=== PATIENT | male | born 1975 | race African-American/Black ===

== ENCOUNTER 2025-01-27 16:12 | Emergency (ER) | payer OTHER, SELFPAY ==
--- OUTSIDE RECORDS SUMMARY | 2025-01-27 16:16 | XMS_ITS | Clinical Summary ---
Author Organization [facility] Address [address] [place] [address] Care Team Providers Care Industrial Workers Name Role Phone Unavailable Primary Care Provider Unavailabl e Source Comments [facility],non-owned Affiliates and Associated Physician Practices is amultiple site organization consisting of ambulatory clinics and hospital sitesin [place], [place], [place] and [place]. This disclosure is being madepursuant to the Care Everywhere program and may not contain all information available regarding this patient. Last updated 17.[facility] Allergies No known active allergies Medications * Be aware that medications may not be up to date on this document. Alwaysverify current medications with the patient. No known medications Active Problems Problem Noted Date Diagnosed Date NSTEMI (non-ST elevated myocardial infarction) 0 03/19/2018 Acute thoracic back pain 03/19/2018 Social History Tobacco Use Types Packs/Day Years Used Date Smoking Tobacco: Every Day Cigarettes 0.3 22 Started: 03/15/1996; Last attempted to quit: 03/15/2018 Smokeless Tobacco: Never Tobacco Cessation:Counseling Given: Yes Alcohol Use Standard Drinks/Week Comments No 0 (1 standard drink = 0.6 oz pur e alcohol) PHQ-2 Answer Date Recorded PHQ2 TOTAL SCORE 0 04/28/2021 Sex and Gender Information Value Date Recorded Sex Assigned at Not on file Legal Sex Male 12:02 PM CORRECTION WARDEN Gender Identity Not on file Sexual Orientation Not on file Last Filed Vital Signs Vital Sign Reading Time Taken Comments Blood Pressure 157/102 08/23/2024 12:44 AM CDT Pulse 87 08/23/2024 12:44 AM CDT Temperature 36.7 C (98.1 F) 08/23/2024 12:44 AM CDT Respiratory Rate 20 08/23/2024 12:44 AM CDT Oxygen Saturation 94% 08/23/2024 12:44 AM CDT Inhaled Oxygen Concentration - - Weight 79.4 kg (175 lb) 08/23/2024 12:44 AM CDT Height 180.3 cm (5' 11) 08/23/2024 12:44 AM CDT Body Mass Index 24.41 08/23/2024 12:44 AM CDT Plan of Treatment Health Maintenance Due Date Last Done Comments COLOGUARD (AGES 45-75) - COL ON CA SCREENING 1976 COLON MONITORING 1976 COLONOSCOPY - COLON CA SCREENING 1976 CT COLONOGRAPHY - COLON CA SCREENING 1976 Colorectal Cancer Screening 1976 FIT - COLON CA SCREENING 1976 FLEX SIG - COLON CA SCREENING 1976 LIPID TESTING 1976 HEPATITIS C SCREENING 02/27/1994 DTAP/TDAP/TD VACCINES (1 - Tdap) 1995 HEPATITIS B VACCINE (1 of 3 - 19+ 3-dose series) 1995 PNEUMOCOCCAL VACCINE (1 of 2 - PCV) 1995 SCREENING FOR DIABETES 12/07/2021 9, 03/19/2018, 09/12/2010 DEPRESSION SCREENING 02/22/2024 10/07/2021 COVID-19 VACCINE (1 - 2024-2 6 season) 2024 INFLUENZA VACCINE (#1) 2024 ZOSTER VACCINE (1 of 2) 2026 HIV SCREENING Completed 08/23/2024 HIB VACCINE Aged Out No longer eligi ble based on patient's age to complete this topic HPV VACCINE Aged Out No longer eligi ble based on patient's age to complete this topic MENINGOCOCCAL (Group B) VACCINE SHARED DECISION-MAKING Aged Out No longer eligible based on patient's age to complete this topic MENINGOCOCCAL GROUPS A/C/Y/W VACCINE Aged Out No longer eligible b ased on patient's age to complete this topic Procedures Procedure Name Priority Date/Time Associated Diagnosis Comments HIV-1 HIV-2 ANTIBODY + HIV P24 AG PANEL STAT 08/23/2024 2:17 AM CDT BASIC METABOLIC PANEL (CALCIUM TOTAL) AM Draw 03/20/2018 5:27 AM CORRECTION WARDEN from Last 3 Months or Most Recently Relevant to Health Maintenance Results * HIV-1 HIV-2 ANTIBODY + HIV P24 AG PANEL (08/23/2024 2:17 AM CDT) HIV1/2 Ab + P24 Ag Non Reactive Non Reactive 08/23/2024 3:07 AM CDT [facility] Blood BLOOD SPECIMEN / Unknown Venipuncture / Unknown 08/23/2024 2:17 AM CDT 08/23/2024 2:24 AM CDT Narrative [facility] - 08/23/2024 3:07 AM CDT No Laboratory evidence of HIV infection. us Dre Anderson MD LAB - CHEMISTRY ORDERA BLES Final Result [facility] [address] [place], [place] [id number] * (ABNORMAL) BASIC METABOLIC PANEL (CALCIUM TOTAL) (03/20/2018 5:27 AM CORRECTION WARDEN) Glucose 129(H) 74 - 106 mg/dL 03/20/2018 6:23 AM [facility] Sodium 137 136 - 145 mmol/L 03/20/2018 6:23 AM [facility] Potassium 4.0 3.5 - 5.1 mmol/L 03/20/2018 6:23 AM [facility] Chloride 103 98 - 107 mmol/L 03/20/2018 6:23 AM [facility] CO2 23 22 - 31 mmol/L 03/20/2018 6:23 AM [facility] Calcium 9.1 8.5 - 10.1 mg/dL 03/20/2018 6:23 AM [facility] Anion Gap 11 8 - 16 mmol/L 03/20/2018 6:23 AM [facility] BUN 23(H) 7 - 21 mg/dL 03/20/2018 6:23 AM CORRECTION WARDEN [facility] Creatinine 1.10 0.50 - 1.30 mg/dL 03/20/2018 6:23 AM [facility] eGFR by MDRD >60 >60 mL/min/1.7 3m2 03/20/2018 6:23 AM CORRECTION WARDEN [facility] eGFR by MDRD >60 >60 mL/min/1.7 3m2 03/20/2018 6:23 AM CORRECTION WARDEN [facility] Blood BLOOD SPECIMEN / Unknown Lab Venipuncture / Unknown 03/20/2018 5:27 AM CORRECTION WARDEN 03/20/2018 5:35 AM CORRECTION WARDEN Mayra Jane FUEL OIL CLERK-SALES COMPENSATION ANALYST LAB - CHEMISTRY ORDERA BLES Final Result [facility] [address] [place] [address] from Last 3 Months or Most Recently Relevant to Health Maintenance Insurance SELF PAY NO INSURANCE Member Subscriber Plan / Payer (Ef fective for All Dates) Name:Jesse Fountain Jr. Relation to Subscriber:Self Name:Jesse Fountain Jr. Payer ID:Not on file Group ID:Not on file Type:Self Pay Address: [facility] Advance Directives * Full Code (Latest Code Status on File) Date Activated Date Inactivated Comments 03/19/2018 8:59 PM 03/20/2018 6:11 PM * Full Code Date Activated Date Inactivated Comments 03/19/2018 7:29 PM 03/19/2018 8:59 PM
--- OUTSIDE RECORDS SUMMARY | 2025-01-27 16:16 | XMS_ITS | Continuity of Care Document ---
Author Name Trent Shah Address [address] [place], [place] [id number] [place] [address] Organization Unknown Address [address] [place] [address] Medications No known medications Problems No known problems
--- OUTSIDE RECORDS SUMMARY | 2025-01-27 16:16 | XMS_ITS | Continuity of Care Document ---
Author Name Pablo Trent Address [address] [place], [place] [id number] [place] [address] Organization Unknown Address [address] [place], [place] [id number] [place] [address] Medications No known medications Problems No known problems
--- OUTSIDE RECORDS SUMMARY | 2025-01-27 16:16 | XMS_ITS | Clinical Summary ---
Author Organization [facility] Address [address] [place] [address] Care Team Providers Care Group Account Director Name Role Phone Unavailable Primary Care Provider Unavailabl e Medications No known medications Active Problems Problem Noted Date Diagnosed Date NSTEMI (non-ST elevated myocardial infarction) 0 03/19/2018 Acute thoracic back pain 03/19/2018 Encounters Date Type Department Care Team Description 01/08/2025 External Device Data [facility] AB[facility]CTION Provider, Abstract 01/08/2025 External Device Data [facility] AB[facility]CTION Provider, Abstract 12/12/2024 External Device Data [facility] Provider, Abstract from Last 3 Months Social History Tobacco Use Types Packs/Day Years Used Date Smoking Tobacco: Never Assessed Sex and Gender Information Value Date Recorded Sex Assigned at Not on file Legal Sex Male 12:24 PM GROUP THERAPIST Gender Identity Not on file Sexual Orientation Not on file Plan of Treatment Health Maintenance Due Date Last Done Comments DTAP/TDAP/TD VACCINES (1 - Tdap) 1995 HEPATITIS B VACCINES (1 of 3 - 19+ 3-dose series) 02/21 COLORECTAL SCREENING 2021 Colorectal Cancer Screening 2021 FIT-DNA Q 3 years 2021 FIT/FOBT Q 1 year 2021 Flex Sig/CT Colonography Q 5 years 2021 INFLUENZA VACCINE (#1) 2024 Insurance BS FEDERAL
--- OUTSIDE RECORDS SUMMARY | 2025-01-27 16:16 | XMS_ITS | Clinical Summary ---
Author Organization [facility] Address [address] [place] [address] Care Team Providers Care Materials Planner/Production Planner Name Role Phone No, Physician Primary Care Provider [phone] Allergies No known active allergies Medications bictegrav-emtri cit-tenofov ala 30-120-15 mg tablet Take 1 tablet by mouth daily 27 tablet 2 Active naproxen (NAPROSYN) 500 mg tablet Take 1 tablet (500 mg total) by mouth 2 (two) times a day with meals 10 tablet 4 Active acetaminophen (TYLENOL) 500 mg tablet Take 1 tablet (500 mg total) by mouth every 6 (six) hours as needed for pain, headaches or fever 30 tablet 4 Active lidocaine (LIDODERM) 5 % Apply 1 patch topically daily Remove & discard patch within 12 hours or as directed by MD. 15 patch 4 Active diclofenac sodium (VOLTAREN) 1 % gel Apply 2 g topically 4 (four) times a day 20 g 4 Active bacitracin 500 unit/gram ointment Apply topically 2 (two) times a day 120 g 4 Active Medical History Medical History Date Comments Hypertension Social History Tobacco Use Types Packs/Day Years Used Date Smoking Tobacco: Never Assessed Personal Safety Answer Date Recorded Have you ever been in or are you currently in a harmful physical or emotional relationship or is someone making you feel afraid or unsafe? Denies 02/21/2024 Sex and Gender Information Value Date Recorded Sex Assigned at Not on file Legal Sex Male 11:38 PM SIGNAL INTEGRITY ENGINEER Gender Identity Not on file Sexual Orientation Not on file Last Filed Vital Signs Vital Sign Reading Time Taken Comments Blood Pressure 169/96 02/21/2024 7:30 PM SIGNAL INTEGRITY ENGINEER Pulse 68 02/21/2024 7:30 PM SIGNAL INTEGRITY ENGINEER Temperature 36.9 C (98.4 F) 02/21/2024 4:35 PM SIGNAL INTEGRITY ENGINEER Respiratory Rate 18 02/21/2024 7:30 PM SIGNAL INTEGRITY ENGINEER Oxygen Saturation 99% 02/21/2024 4:35 PM SIGNAL INTEGRITY ENGINEER Inhaled Oxygen Concentration - - Weight 79.4 kg (175 lb) 02/21/2024 4:35 PM SIGNAL INTEGRITY ENGINEER Height 180.3 cm (5' 11) 02/21/2024 4:35 PM SIGNAL INTEGRITY ENGINEER Body Mass Index 24.41 02/21/2024 4:35 PM SIGNAL INTEGRITY ENGINEER Plan of Treatment Health Maintenance Due Date Last Done Comments Colon Cancer Screening-Colonoscopy 1976 Depression Screening 1976 Prostate Cancer Screening-PSA 1976 DTaP/Tdap/Td Vaccine (1 - Tdap) 1987 Hepatitis B Screening 1994 Regular Well Visit/Exam 18-64 1994 Influenza Vaccine (#1) 2024 Hepatitis C Screening Completed 01/11/2022 Pneumococcal vaccine <65 Aged Out No longer eligible based on patient's age to complete this topic Procedures Procedure Name Priority Date/Time Associated Diagnosis Comments HEPATITIS PANEL, ACUTE STAT 01/11/2022 10:27 PM SIGNAL INTEGRITY ENGINEER from Last 3 Months or Most Recently Relevant to Health Maintenance Results * Hepatitis panel, acute (01/11/2022 10:27 PM SIGNAL INTEGRITY ENGINEER) Hep A IgM Nonreactive Nonreactive [facility] Hep B core IgM Nonreactive Nonreactive [facility] Hep C Ab Nonreactive Nonreactive [facility] Comment:Antibodies to HCV no t detected. Does NOT exclude the possibility of recent exposure to HCV. Current interpretive data was last revised on 21 HepBsAg Nonreactive Nonreactive [facility] Blood 01/11/2022 10:2 7 PM SIGNAL INTEGRITY ENGINEER 01/11/2022 10:42 PM SIGNAL INTEGRITY ENGINEER us Jackie Camacho MD LAB MICROBIOLOGY - GENERA L ORDERABLES Final Result [facility] [place] [address] from Last 3 Months or Most Recently Relevant to Health Maintenance Insurance FEDERAL Clip FEDERAL IDPA Care Teams Materials Planner/Production Planner Relationship Specialty Start Date End Date No, Physician PCP - General 01/11/22
--- OUTSIDE RECORDS SUMMARY | 2025-01-27 16:16 | XMS_ITS | Patient Health Record ---
Author Organization [facility] Address [address] [place] [address] Care Team Providers Care Granite Sandblaster Apprentice Name Role Phone JUDE FRAZIER Primary Care Provider AIMEE JONES Unavailable [phone] [place], STUART Unavailable [phone] Allergies No Known Allergies Results Component Value Reference Range Notes QUANTIFERON GOLD TB TEST ($) Reviewed date:06/05/2024 10:41:05 AM Interpretation: Performing Lab:, [facility], [address] [place] Notes/Report: Draw Location: [facility], [address] [place] [address]. [facility] [place] [address] Testing performed at: [facility] [place] [address] Draw Location: [facility] Draw Location: [facility] QUANTIFERON Negative Negative TB1 Tube (Expected Value: <0.35 IU/mL) value: 0.05 IU/mL TB2 Tube (Expected Value: <0.35 IU/mL) value: 0.05 IU/mL NIL Tube (Negative Int. Control Expected Value: <= 8.0 IU/mL) value: 0.06 IU/mL Mitogen Tube (Positive Int. Control Expected Value: >= 0.5 IU/mL) value: >10.00 IU/mL Interferon-gamma (TB1 and TB2) values should not be used to monitor disease progression or response to therapy. M. tuberculosis infection unlikely, but cannot be excluded especially when: 1. Illness is consistent with TB disease. 2. Likelihood of progression to disease is increased (e.g. due to immunosuppression). STI HIV 1 & 2 AB, [facility] Reviewed date:06/15/2024 02:35:26 PM Interpretation: Performing Lab:, [facility], [address], [facility], [facility] Notes/Report: Draw Location: [facility] HIV 1/2 AB Negative Negative STI RPR Reviewed date:06/15/2024 02:35:26 PM Interpretation: Performing Lab:, [facility], [address], [facility], [place] Notes/Report: Draw Location: [facility] RPR Syphilis Serology Nonreactive Nonreactive STI NEISSERIA MARIO ALBERTO, XPERT (Ur ine) Reviewed date:06/15/2024 02:35:26 PM Interpretation: Performing Lab:, [facility], [address], [address] [place] [address], [facility] Notes/Report: Draw Location: [facility] Urine Sample Type First Void Xpert NG Negative for Neisseria gonorrhoeae Negative for Neisseria gonorrhoeae STI CHLAMYDIA TRACH, XPERT ( Urine) Reviewed date:06/15/2024 02:35:26 PM Interpretation: Performing Lab:, [facility], [address], [facility], [facility] Notes/Report: Urine Sample Type First Void Draw Location: [facility] Xpert CT Negative for Chlamydia trachomatis Negative for Chlamydia trachomatis Reason For Referral Reason Evaluation of lipoma and possible removal Diagnosis 1 Lipoma of head (D17. 0) Referral Organization [facility] Ryan montoya Referring Provider First Name STUART Referring Provider Last Name FANTASMA [facility] Referred Organization [facility] Referred Address [address],[place],[address],[place] Referred Provider Specialty General Surg jason General Notes Javi Resendiz 025 11:38:50 AM >Faxed referral to [facility] (fax: [phone]).Martín Jamie 05/30/2024 11:38:59 AM >Forwarded to [facility] to further track. Clinical Notes Miranda Grewal 06/07 03:58:34 PM >nothing in [facility] as of yet. Called [facility] and they have not received any referral. Referral has been refaxed to [phone]. I will check back with them 06/08/2024 to see if they received referral., Miranda Grewal 06/18/2024 07:59:23 AM >checked [facility] portal, nothing has been scheduled as of 06/18/2024, Miranda Grewal 06/20/2024 11:23:43 AM >checked [facility] portal, nothing has been scheduled. I call [facility] at [phone]. they advised they have been unable to reach pt. Appt has been set for 09/03 @ 1:15 p.m. I called pt and left a message with this updated information. I will send out letter to pt as well with the information and phone number to call and r/s if this timeframe does not work for pt., Miranda Grewal 08/30/2024 10:10:01 AM >Appointment 09/03/24 @ 1:15 p.m w/Ryan Cid MD, Monserrat Mueller 09/14/2024 02:14:47 PM >pt no show'd appointment. Referral Priority Routine Referral Appointment Date 09/03/2024 Immunizations Vaccine Route Administration Date Status Comme nts Tdap Unknown 06/23/2016 Administered Social History Tobacco Use: Social History Observation Description Date Details (start date - stop date) Current Smoker NA - NA Sex Assigned At : Social History Observation Description Sex Assigned At Male *Tobacco Use/Smoking Question Answer Notes Are you a: Uses tobacco in other forms Additional Findings: Tobacco User Cigar smoker PRAPARE Question Answer Notes Date Completed/Updated: 06/01/2024 What is your current housing situation? I do not have housing (staying with others, in a hotel, in a assisted, living outside on the street, on a beach, or in a park) Are you worried about losing your housing? No What is the highest level of school that you have finished? More than high school What is your current work situation? Unemployed and seeking work In the past year, have you o r any family members you live with been unable to get any of the following when it was really needed? Check all that apply I do not have problems meeting my needs Has lack of transportation k ept you from medical appointments, meetings, work or from getting things needed for daily living? No How often do you see or talk to people that you care about and feel close to? (For example: talking to friends on the phone, visiting friends or family, going to mu-ism or club meetings) More than 5 times a week How stressed are you? Stress is when someone feels tense, nervous, anxious, or cant sleep at night because their mind is troubled A little bit In the past year have you sp ent more than 2 nights in a row in a mcfp, assisted, mcc center, or juvenile correctional facility? No Are you a refugee? No What country are you from? [place] Do you feel physically and e motionally safe where you currently live? Yes In the past year, have you b een afraid of your partner or ex-partner? No PRAPARE Score: 5 *CAGE-AID Questionnaire (2018 Edition) Question Answer Notes Have you ever felt that you ought to cut down on your drinking or drug use? No Have people annoyed you by criticizing your drin merrill or drug use? No Have you ever felt bad or guilty about your drin merrill or drug use? No Have you ever had a drink or used drugs first thing in the morning to steady your nerves or to get rid of a hangover? No CAGE-AID Score 0 Interpretation Negative Tobacco Control (Standard) Question Answer Notes Tobacco use: Current smoker How often do you smoke cigarettes? Every day How many cigarettes a day do you smoke? 5 or les s AUDIT-C (Standard) Question Answer Notes Did you have a drink containing alcohol in the p ast year? No Points 0 Interpretation Negative Problems Problem Type SNOMED Code ICD Code Onset Dates Problem Status W/U Status Risk Notes Problem Plantar wart of right foot (233238781479040 01) Plantar wart of right foot (B07.0) Active confirmed Problem Adult health examination (987512087) Healthcare maintenance (Z00.00) Active confirmed Problem Lipoma of head (178601321894782 ) Lipoma of head (D17.0) Active confirmed Vital Signs Heart Rate 62 /min 06/01/2024 Temperature 97.4 degrees Fahrenheit 06/01/2024 Respiratory Rate 16 /min 06/01/2024 Blood pressure diastolic 84 mm Hg 06/01/2024 Oximetry 94 % 06/01/2024 Height 70.00 in 06/01/2024 Blood pressure systolic 144 mm Hg 06/01/2024 Weight 170.6 lbs 06/01/2024 BMI 24.48 kg/m2 06/01/2024 Encounters Encounter Location Date Provider Diagnosis [facility] [address] [place] [address] 05/29/2024 AIMEE JONES Screening for STD (sexually transmitted disease) Z11.3 and Screening for HIV (human immunodeficiency virus) Z11.4 [facility] [address] [place] [address] 05/29/2024 STUART FANTASMA Plantar wart of righ t foot B07.0 and Lipoma of head D17.0 [facility] [address] [place] [address] 06/01/2024 JUDE KARIN Tuberculosis exposur e Z20.1 ; Encounter for smoking cessation counseling Z71.6 and Elevated blood pressure reading without diagnosis of hypertension R03.0 Assessments Encounter Date Diagnosis (ICD Code) Assessment Notes Treatment Notes Treatment Clinical Notes Section Notes 05/29/2024 Screening for STD (sexually transmitted disease) (ICD-10 - Z11.3) 05/29/2024 Plantar wart of right foot (ICD-10 - B07.0) 05/29/2024 Lipoma of head (ICD-10 - D17.0) 06/01/2024 Encounter for smoking cessation counseling (ICD-10 - Z71.6) Discussed that patient is fare more likely to suffer long-term negative effects from smoking than his risk for TB infeciton, so strongly encouraged considering smoking cessation. Provided [place] Q[place] card. 06/01/2024 Tuberculosis exposure (ICD-10 - Z20.1) Advised if patient's exposure was to someone with latent TB then there is no risk for transmission. However, patient reports the source had cold-like symptoms so will go ahead and test today, and will plan for 3 month recheck to be thorough. Advised to RTC if experiencing any fevers, night sweats, unintentional weight loss, cough, or hemoptysis. 05/29/2024 Screening for HIV (human immunodeficiency virus) (ICD-10 - Z11.4) 06/01/2024 Elevated blood pressure reading without diagnosis of hypertension (ICD-10 - R03.0) BP elevated today, but has had historically more normal readings, so will attribute this possibly to anxiety about the situation. Will recheck at next follow up. 05/29/2024 Other #Plantar warts We will use cryotherapy on the wart to try to reduce it further. Patient may continue taping desires. #Lipoma Referral to general surgery. Patient informed that it is not clear whether insurance would cover the removal as it might be considered a cosmetic procedure. Dr. Nicole was present during the procedure. Plan Of Treatment No Information Insurance Providers Payer Name Payer Address Payer Phone Subscriber Number Group Number Insured Name Patient Relationship to Insured Coverage Start Date Coverage End Date [place] [address] [place] [address] [id number] BRITTNEY [place] Self - patient is the insured Medical (General) History Medical History History ICD Code Problems: High Blood Pressure: Active Tobacco Use: Active
[2025-01-27 16:17] VITALS: BP 158/105; PULSE 78; RESP 16; TEMP 36.3; O2SAT 100
--- NOTE | 2025-01-27 16:33 | PC.NURSE ---
Pt states he wants to leave. Pt seen exiting ER with steady gait.
== END 2025-01-27 16:39 | disposition left against medical advice (07) ==
DX: Z53.21 Procedure and treatment not carried out due to patient leaving prior to being seen by health care provider (principal)
CPT/HCPCS: 99199